=== PATIENT | female | born 1990 | race Caucasian/White ===

== ENCOUNTER 2016-12-23 00:20 | Emergency (ER) | payer MEDICAID ==
[2016-12-23 00:33] VITALS: BP 138/81
--- NOTE | 2016-12-23 00:39 | EDM.PDOC ---
ED HPI GENERAL MEDICAL PROBLEM - General Chief Complaint: ENT Problem Stated Complaint: POSSIBLE STREP, RASH Time Seen by Provider: 12/23/16 00:36 - History of Present Illness INITIAL COMMENTS - FREE TEXT/NARRATIVE: HISTORY AND PHYSICAL: History of present illness: Patient 26-year-old white female with return of sore throat x2 days she is concerned of strep screening she states she's also had a mild rash with this she states she's had some low-grade fever denies chills shortness of breath cough abdominal pain or other concern Review of systems: As per history of present illness and below otherwise all systems reviewed and negative. Past medical history: As per history of present illness and as reviewed below otherwise noncontributory. Surgical history: As per history of present illness and as reviewed below otherwise noncontributory. Social history: No reported history of drug or alcohol abuse. Family history: As per history of present illness and as reviewed below otherwise noncontributory. Physical exam: HEENT: Atraumatic, normocephalic, pupils reactive, negative for conjunctival pallor or scleral icterus, mucous membranes moist, throat injected with 2+ tonsils no peritonsillar fullness Robino deviation neck supple, nontender, trachea midline. Lungs: Clear to auscultation, breath sounds equal bilaterally, chest nontender. Heart: S1S2, regular, negative for clicks, rubs, or JVD. Abdomen: Soft, nondistended, nontender. Negative for masses or hepatosplenomegaly. Negative for costovertebral tenderness. Pelvis: Stable nontender. Genitourinary: Deferred. Rectal: Deferred. Extremities: Atraumatic, negative for cords or calf pain. Neurovascular unremarkable. Neuro: Awake, alert, oriented. Cranial nerves II through XII unremarkable. Cerebellum unremarkable. Motor and sensory unremarkable throughout. Exam nonfocal. Diagnostics: Rapid strep Therapeutics: None Impression: #1 pharyngitis Definitive disposition and diagnosis as appropriate pending reevaluation and review of above. Throat Pain Score (Numeric/FACES): 3 - Related Data Allergies Allergy/AdvReac Type Severity Reaction Status Date / Time No Known Allergies Allergy Verified 03/12/16 00:23 Home Meds: Home Meds . [No Known Home Meds] 12/23/16 [History] Past Medical History - Past Health History Medical/Surgical History: Denies Medical/Surgical History HEENT History: Reports: Impaired vision Other HEENT History: wears glasses/ contacts Cardiovascular History: Reports: None Respiratory History: Reports: None Gastrointestinal History: Reports: GERD Other Gastrointestinal History: unknown location of ulcer Genitourinary History: Reports: None SENIOR RESEARCH CONSULTANT History: Reports: None Musculoskeletal History: Reports: None Neurological History: Reports: None Psychiatric History: Reports: Anxiety, Depression Endocrine/Metabolic History: Reports: None Hematologic History: Reports: None Immunologic History: Reports: None Oncologic (Cancer) History: Reports: None Dermatologic History: Reports: None - Infectious Disease History Infectious Disease History: Reports: Chicken pox - Past Surgical History Head Surgeries/Procedures: Reports: None HEENT Surgical History: Reports: Oral surgery Other HEENT Surgeries/Procedures: wisdom teeth removed Cardiovascular Surgical History: Reports: None Respiratory Surgical History: Reports: None GI Surgical History: Reports: None Female Surgical History: Reports: None Endocrine Surgical History: Reports: None Musculoskeletal Surgical History: Reports: None Oncologic Surgical History: Reports: None Social & Family History - Family History Family Medical History: Noncontributory - Tobacco Use Smoking Status *Q: Never Smoker Years of Tobacco use: 2 Second Hand Smoke Exposure: No - Caffeine Use Caffeine Use: Reports: None - Alcohol Use Days Per Week of Alcohol Use: 2 Number of Drinks Per Day: 6 Total Drinks Per Week: 12 - Recreational Drug Use Recreational Drug Use: No Drug Use in Last 12 Months: No ED ROS GENERAL - Review of Systems Review Of Systems: ROS reveals no pertinent complaints other than HPI. ED EXAM, GENERAL - Physical Exam Exam: See Below (See dictation) Course - Vital Signs Last Recorded V/S: Last Vital Signs Temp 37.2 C 12/23/16 00:29 Pulse 87 12/23/16 00:29 Resp 16 12/23/16 00:29 BP 138/81 12/23/16 00:29 Pulse Ox 98 12/23/16 00:29 - Orders/Labs/Meds Orders: Active Orders 24 hr Category Date Time Status CULTURE STREP A CONFIRMATION [RM] Stat Lab 12/23/16 00:35 Results STREP SCRN A RAPID W CULT CONF [RM] Stat Lab 12/23/16 00:35 Results Departure - Departure Time of Disposition: 00:38 Disposition: Home, Self-Care 01 Condition: good Clinical Impression: Tonsillitis, Viral exanthem Referrals: Melissa Neff NP [Primary Care Provider] - Forms: ED Department Discharge Additional Instructions: The following information is given to patients seen in the emergency department who are being discharged to home. This information is to outline your options for follow-up care. We provide all patients seen in our emergency department with a follow-up referral. The need for follow-up, as well as the timing and circumstances, are variable depending upon the specifics of your emergency department visit. If you don't have a primary care physician on staff, we will provide you with a referral. We always advise you to contact your personal physician following an emergency department visit to inform them of the circumstance of the visit and for follow-up with them and/or the need for any referrals to a consulting specialist. The emergency department will also refer you to a specialist when appropriate. This referral assures that you have the opportunity for followup care with a specialist. All of these measure are taken in an effort to provide you with optimal care, which includes your followup. Under all circumstances we always encourage you to contact your private physician who remains a resource for coordinating your care. When calling for followup care, please make the office aware that this follow-up is from your recent emergency room visit. If for any reason you are refused follow-up, please contact the [facility] emergency department at and asked to speak to the emergency department charge nurse. Benadryl as prescribed push fluids Motrin or Tylenol as directed follow up primary medical doctor in 2 days return as needed as discussed - My Orders Last 24 Hours: My Active Orders 12/23/16 00:35 CULTURE STREP A CONFIRMATION [RM] Stat STREP SCRN A RAPID W CULT CONF [RM] Stat - Assessment/Plan Last 24 Hours: My Active Orders 12/23/16 00:35 CULTURE STREP A CONFIRMATION [RM] Stat STREP SCRN A RAPID W CULT CONF [] Stat
== END 2016-12-23 01:02 | disposition home or self-care (01) ==
LOC: MW.ED 00:20
DX: J03.90 Acute tonsillitis, unspecified (principal); B09 Unspecified viral infection characterized by skin and mucous membrane lesions; K21.9 Gastro-esophageal reflux disease without esophagitis; F41.9 Anxiety disorder, unspecified; F32.9 Major depressive disorder, single episode, unspecified; Z98.890 Other specified postprocedural states
CPT/HCPCS: 87081; 87880; 99282; 99283

== ENCOUNTER 2016-12-23 18:31 | Emergency (ER) | payer MEDICAID ==
--- NOTE | 2016-12-23 19:17 | EDM.PDOC ---
ED HPI Skin/Rash - General Chief Complaint: Skin Complaint Stated Complaint: RASH FLARE UP Time Seen by Provider: 12/23/16 19:11 - History of Present Illness INITIAL COMMENTS - FREE TEXT/NARRATIVE: HISTORY AND PHYSICAL: History of present illness: Patient 26-year-old female presents with a concern of rash patient was seen yesterday by myself with sore throat and rash rapid strep was negative patient was discharged to gradually prescribed we discussed viral exanthems patient returns now with worsening rash she equivocates regarding pruritus she does not know of any new possible exposures or other etiologies. Review of systems: As per history of present illness and below otherwise all systems reviewed and negative. Past medical history: As per history of present illness and as reviewed below otherwise noncontributory. Surgical history: As per history of present illness and as reviewed below otherwise noncontributory. Social history: No reported history of drug or alcohol abuse. Family history: As per history of present illness and as reviewed below otherwise noncontributory. Physical exam: HEENT: Atraumatic, normocephalic, pupils reactive, negative for conjunctival pallor or scleral icterus, mucous membranes moist, throat 2+ tonsils no peritonsillar fullness of mitigation or posterior exudates, neck supple, nontender, trachea midline. Lungs: Clear to auscultation, breath sounds equal bilaterally, chest nontender. Heart: S1S2, regular, negative for clicks, rubs, or JVD. Abdomen: Soft, nondistended, nontender. Negative for masses or hepatosplenomegaly. Negative for costovertebral tenderness. Pelvis: Stable nontender. Genitourinary: Deferred. Rectal: Deferred. Extremities: Maculopapular type rash noted diffusely Neuro: Awake, alert, oriented. Cranial nerves II through XII unremarkable. Cerebellum unremarkable. Motor and sensory unremarkable throughout. Exam nonfocal. Diagnostics: CBC CMP Monospot rapid strep Therapeutics: None Impression: #1 rash etiology to be determined rule out viral exanthem Definitive disposition and diagnosis as appropriate pending reevaluation and review of above. - Related Data Allergies Allergy/AdvReac Type Severity Reaction Status Date / Time No Known Allergies Allergy Verified 12/23/16 19:15 Home Meds: Ambulatory Orders Medication Instructions Recorded Confirmed . [No Known Home Meds] 12/23/16 12/23/16 Past Medical History - Past Health History Medical/Surgical History: Denies Medical/Surgical History HEENT History: Reports: Impaired vision Other HEENT History: wears glasses/ contacts Cardiovascular History: Reports: None Respiratory History: Reports: None Gastrointestinal History: Reports: GERD Other Gastrointestinal History: unknown location of ulcer Genitourinary History: Reports: None ASSOCIATE DIRECTOR History: Reports: None Musculoskeletal History: Reports: None Neurological History: Reports: None Psychiatric History: Reports: Anxiety, Depression Endocrine/Metabolic History: Reports: None Hematologic History: Reports: None Immunologic History: Reports: None Oncologic (Cancer) History: Reports: None Dermatologic History: Reports: None - Infectious Disease History Infectious Disease History: Reports: Chicken pox - Past Surgical History Head Surgeries/Procedures: Reports: None HEENT Surgical History: Reports: Oral surgery Other HEENT Surgeries/Procedures: wisdom teeth removed Cardiovascular Surgical History: Reports: None Respiratory Surgical History: Reports: None GI Surgical History: Reports: None Female Surgical History: Reports: None Endocrine Surgical History: Reports: None Musculoskeletal Surgical History: Reports: None Oncologic Surgical History: Reports: None Social & Family History - Family History Family Medical History: Noncontributory - Tobacco Use Smoking Status *Q: Never Smoker Years of Tobacco use: 2 Second Hand Smoke Exposure: No - Caffeine Use Caffeine Use: Reports: None - Alcohol Use Days Per Week of Alcohol Use: 2 Number of Drinks Per Day: 6 Total Drinks Per Week: 12 - Recreational Drug Use Recreational Drug Use: No Drug Use in Last 12 Months: No ED ROS GENERAL - Review of Systems Review Of Systems: ROS reveals no pertinent complaints other than HPI. ED EXAM, SKIN/RASH Exam: See Below (See dictation) Course - Vital Signs Last Recorded V/S: Last Vital Signs Temp 37.1 C 12/23/16 19:20 Pulse 81 12/23/16 19:20 Resp 18 12/23/16 19:20 BP 119/66 12/23/16 19:20 Pulse Ox 99 12/23/16 19:20 - Orders/Labs/Meds Orders: Active Orders 24 hr Category Date Time Status CULTURE STREP A CONFIRMATION [RM] Stat Lab 12/23/16 19:34 Results STREP SCRN A RAPID W CULT CONF [RM] Stat Lab 12/23/16 19:34 Results Labs: Laboratory Tests 12/23/16 12/23/16 12/23/16 Range/Units 19:30 19:30 19:30 WBC 9.82 (4.0-11.0) K/uL RBC 4.58 (4.30-5.90) M/uL Hgb 13.6 (12.0-16.0) g/dL Hct 41.5 (36.0-46.0) % MCV 90.6 (80.0-98.0) fL MCH 29.7 (27.0-32.0) pg MCHC 32.8 (31.0-37.0) g/dL RDW Std Deviation 46.0 (28.0-62.0) fl RDW Coeff of [place] 14 (11.0-15.0) % Plt Count 259 (150-400) K/uL MPV 9.90 (7.40-12.00) fL Neut % (Auto) 74.5 (48.0-80.0) % Lymph % (Auto) 12.8 L (16.0-40.0) % [place] % (Auto) 7.3 (0.0-15.0) % Eos % (Auto) 5.3 (0.0-7.0) % Baso % (Auto) 0.1 (0.0-1.5) % Neut # (Auto) 7.3 H (1.4-5.7) K/uL Lymph # (Auto) 1.3 (0.6-2.4) K/uL [place] # (Auto) 0.7 (0.0-0.8) K/uL Eos # (Auto) 0.5 (0.0-0.7) K/uL Baso # (Auto) 0.0 (0.0-0.1) K/uL Nucleated RBC % 0.0 /100WBC Nucleated RBCs # 0 K/uL Sodium 140 (136-146) mmol/L Potassium 3.9 (3.5-5.1) mmol/L Chloride 109 (98-110) mmol/L Carbon Dioxide 23 (21-31) mmol/L BUN 14 (6.0-23.0) mg/dL Creatinine 0.7 (0.6-1.5) mg/dL Est Cr Clr Drug Dosing 91.09 mL/min Estimated GFR (MDRD) > 60.0 ml/min Glucose 96 (60-110) mg/dL Calcium 8.3 L (8.8-10.8) mg/dL Total Bilirubin 0.5 (0.1-1.5) mg/dL AST 26 (5-40) IU/L ALT 51 (8-54) IU/L Alkaline Phosphatase 98 (40-150) Total Protein 6.4 (6.0-8.0) g/dL Albumin 3.7 (3.5-5.0) g/dL Globulin 2.7 (2.0-3.5) g/dL Albumin/Globulin Ratio 1.4 (1.3-2.8) Monoscreen NEGATIVE (NEG) Departure - Departure Time of Disposition: 20:32 Disposition: Home, Self-Care 01 Condition: good Clinical Impression: Rash Forms: ED Department Discharge Additional Instructions: The following information is given to patients seen in the emergency department who are being discharged to home. This information is to outline your options for follow-up care. We provide all patients seen in our emergency department with a follow-up referral. The need for follow-up, as well as the timing and circumstances, are variable depending upon the specifics of your emergency department visit. If you don't have a primary care physician on staff, we will provide you with a referral. We always advise you to contact your personal physician following an emergency department visit to inform them of the circumstance of the visit and for follow-up with them and/or the need for any referrals to a consulting specialist. The emergency department will also refer you to a specialist when appropriate. This referral assures that you have the opportunity for followup care with a specialist. All of these measure are taken in an effort to provide you with optimal care, which includes your followup. Under all circumstances we always encourage you to contact your private physician who remains a resource for coordinating your care. When calling for followup care, please make the office aware that this follow-up is from your recent emergency room visit. If for any reason you are refused follow-up, please contact the [facility] emergency department at and asked to speak to the emergency department charge nurse. Medrol as prescribed continue Benadryl follow up with private medical doctor one to 2 days return as needed as discussed - My Orders Last 24 Hours: My Active Orders 12/23/16 19:34 CULTURE STREP A CONFIRMATION [] Stat STREP SCRN A RAPID W CULT CONF [RM] Stat - Assessment/Plan Last 24 Hours: My Active Orders 12/23/16 19:34 CULTURE STREP A CONFIRMATION [RM] Stat STREP SCRN A RAPID W CULT CONF [RM] Stat
[2016-12-23 20:01] LABS: CHLORIDE,CL 109 mmol/L (98-110); SODIUM,NA 140 mmol/L (136-146)
[2016-12-23 20:45] VITALS: BP 109/74
== END 2016-12-23 20:40 | disposition home or self-care (01) ==
LOC: MW.ED 18:31
DX: R21 Rash and other nonspecific skin eruption (principal); F41.9 Anxiety disorder, unspecified; F32.9 Major depressive disorder, single episode, unspecified; K21.9 Gastro-esophageal reflux disease without esophagitis; Z98.890 Other specified postprocedural states
CPT/HCPCS: 36415; 80053; 85025; 86308; 87081; 87880; 99282; 99283

== ENCOUNTER 2017-09-30 03:40 | Emergency (ER) | payer MEDICAID ==
[2017-09-30] MEDS ORDERED: Sodium Chloride 0.9% 1,000 ML IV ONE (03:50)
[2017-09-30] MEDS ORDERED: Ondansetron 4 MG/2 ML SDV IVPUSH ONE (03:51)
[2017-09-30] MEDS ORDERED: Ondansetron 4 MG/2 ML SDV ONE (03:53)
[2017-09-30 04:24] LABS: CHLORIDE,CL 111 mmol/L (98-110); SODIUM,NA 145 mmol/L (136-146)
--- NOTE | 2017-09-30 05:04 | EDM.PDOC ---
ED HPI GENERAL MEDICAL PROBLEM - General Chief Complaint: Drug or Alcohol Abuse Stated Complaint: ALCOHOL POISONING Time Seen by Provider: 09/30/17 04:55 - History of Present Illness INITIAL COMMENTS - FREE TEXT/NARRATIVE: HISTORY AND PHYSICAL: History of present illness: Patient 27-year-old female presents with concern of medical screening exam patient was drinking tonight became nauseous and vomited. Review of systems: As per history of present illness and below otherwise all systems reviewed and negative. Past medical history: As per history of present illness and as reviewed below otherwise noncontributory. Surgical history: As per history of present illness and as reviewed below otherwise noncontributory. Social history: No reported history of drug or alcohol abuse. Family history: As per history of present illness and as reviewed below otherwise noncontributory. Physical exam: HEENT: Atraumatic, normocephalic, pupils reactive, negative for conjunctival pallor or scleral icterus, mucous membranes moist, throat clear, neck supple, nontender, trachea midline. Lungs: Clear to auscultation, breath sounds equal bilaterally, chest nontender. Heart: S1S2, regular, negative for clicks, rubs, or JVD. Abdomen: Soft, nondistended, nontender. Negative for masses or hepatosplenomegaly. Negative for costovertebral tenderness. Pelvis: Stable nontender. Genitourinary: Deferred. Rectal: Deferred. Extremities: Atraumatic, negative for cords or calf pain. Neurovascular unremarkable. Neuro: Awake, alert, oriented. Cranial nerves II through XII unremarkable. Cerebellum unremarkable. Motor and sensory unremarkable throughout. Exam nonfocal. Diagnostics: CBC CMP hCG Therapeutics: Normal saline 1 L bolus Zofran 4 mg IV Impression: #1 alcohol abuse #2 gastritis Definitive disposition and diagnosis as appropriate pending reevaluation and review of above. - Related Data Allergies Allergy/AdvReac Type Severity Reaction Status Date / Time No Known Allergies Allergy Verified 09/30/17 03:47 Home Meds: Home Meds . [No Known Home Meds] 12/23/16 [History] Past Medical History - Past Health History Medical/Surgical History: Denies Medical/Surgical History HEENT History: Reports: Impaired Vision Other HEENT History: wears glasses/ contacts Cardiovascular History: Reports: None Respiratory History: Reports: None Gastrointestinal History: Reports: GERD Other Gastrointestinal History: unknown location of ulcer Genitourinary History: Reports: None SIGN MAINTENANCE History: Reports: None Musculoskeletal History: Reports: None Neurological History: Reports: None Psychiatric History: Reports: Anxiety, Depression Endocrine/Metabolic History: Reports: None Hematologic History: Reports: None Immunologic History: Reports: None Oncologic (Cancer) History: Reports: None Dermatologic History: Reports: None - Infectious Disease History Infectious Disease History: Reports: Chicken Pox - Past Surgical History Head Surgeries/Procedures: Reports: None HEENT Surgical History: Reports: Oral Surgery Cardiovascular Surgical History: Reports: None Respiratory Surgical History: Reports: None GI Surgical History: Reports: Cholecystectomy Female Surgical History: Reports: None Endocrine Surgical History: Reports: None Musculoskeletal Surgical History: Reports: None Oncologic Surgical History: Reports: None Social & Family History - Family History Family Medical History: Noncontributory - Tobacco Use Smoking Status *Q: Never Smoker Years of Tobacco use: 2 Second Hand Smoke Exposure: No - Caffeine Use Caffeine Use: Reports: None - Alcohol Use Days Per Week of Alcohol Use: 2 Number of Drinks Per Day: 6 Total Drinks Per Week: 12 - Recreational Drug Use Recreational Drug Use: No Drug Use in Last 12 Months: No ED ROS GENERAL - Review of Systems Review Of Systems: ROS reveals no pertinent complaints other than HPI. ED EXAM, GENERAL - Physical Exam Exam: See Below (See dictation) Course - Vital Signs Last Recorded V/S: Last Vital Signs Temp 36.4 C 09/30/17 03:40 Pulse 82 09/30/17 03:40 Resp 18 09/30/17 03:40 BP 133/84 09/30/17 03:40 Pulse Ox 97 09/30/17 03:40 - Orders/Labs/Meds Labs: Laboratory Tests 09/30/17 09/30/17 09/30/17 Range/Units 03:55 03:55 03:55 WBC 7.10 (4.0-11.0) K/uL RBC 4.84 (4.30-5.90) M/uL Hgb 15.0 (12.0-16.0) g/dL Hct 43.6 (36.0-46.0) % MCV 90.1 (80.0-98.0) fL MCH 31.0 (27.0-32.0) pg MCHC 34.4 (31.0-37.0) g/dL RDW Std Deviation 43.4 (28.0-62.0) fl RDW Coeff of [place] 13 (11.0-15.0) % Plt Count 354 (150-400) K/uL MPV 9.90 (7.40-12.00) fL Neut % (Auto) 55.4 (48.0-80.0) % Lymph % (Auto) 37.9 (16.0-40.0) % [place] % (Auto) 4.4 (0.0-15.0) % Eos % (Auto) 1.3 (0.0-7.0) % Baso % (Auto) 1.0 (0.0-1.5) % Neut # (Auto) 3.9 (1.4-5.7) K/uL Lymph # (Auto) 2.7 H (0.6-2.4) K/uL [place] # (Auto) 0.3 (0.0-0.8) K/uL Eos # (Auto) 0.1 (0.0-0.7) K/uL Baso # (Auto) 0.1 (0.0-0.1) K/uL Nucleated RBC % 0.0 /100WBC Nucleated RBCs # 0 K/uL Sodium 145 (136-146) mmol/L Potassium 3.8 (3.5-5.1) mmol/L Chloride 111 H (98-110) mmol/L Carbon Dioxide 24 (21-31) mmol/L BUN 7 (6.0-23.0) mg/dL Creatinine 0.7 (0.6-1.5) mg/dL Est Cr Clr Drug Dosing 90.29 mL/min Estimated GFR (MDRD) > 60.0 ml/min Glucose 109 (60-110) mg/dL Calcium 9.2 (8.8-10.8) mg/dL Total Bilirubin 0.3 (0.1-1.5) mg/dL AST 31 (5-40) IU/L ALT 41 (8-54) IU/L Alkaline Phosphatase 73 (40-150) Total Protein 8.0 (6.0-8.0) g/dL Albumin 4.8 (3.5-5.0) g/dL Globulin 3.2 (2.0-3.5) g/dL Albumin/Globulin Ratio 1.5 (1.3-2.8) HCG, Qual NEGATIVE (NEG) Meds: Medications Discontinued Medications Generic Name Dose Route Start Last Admin Trade Name Pita PRN Reason Stop Dose Admin Sodium Chloride 1,000 mls @ 999 mls/hr 09/30/17 03:50 09/30/17 03:55 Normal Saline IV 09/30/17 04:50 999 mls/hr .Bolus ONE Administration Ondansetron HCl 4 mg 09/30/17 03:51 09/30/17 03:56 Zofran IVPUSH 09/30/17 03:52 4 mg ONETIME ONE Administration Ondansetron HCl Confirm 09/30/17 03:53 Zofran Administered 09/30/17 03:54 Dose 4 mg .ROUTE .STK-MED ONE Departure - Departure Time of Disposition: 05:03 Disposition: Home, Self-Care 01 Condition: Good Clinical Impression: Alcohol abuse, Gastritis - Discharge Information Referrals: PCP,None [Primary Care Provider] - Additional Instructions: The following information is given to patients seen in the emergency department who are being discharged to home. This information is to outline your options for follow-up care. We provide all patients seen in our emergency department with a follow-up referral. The need for follow-up, as well as the timing and circumstances, are variable depending upon the specifics of your emergency department visit. If you don't have a primary care physician on staff, we will provide you with a referral. We always advise you to contact your personal physician following an emergency department visit to inform them of the circumstance of the visit and for follow-up with them and/or the need for any referrals to a consulting specialist. The emergency department will also refer you to a specialist when appropriate. This referral assures that you have the opportunity for followup care with a specialist. All of these measure are taken in an effort to provide you with optimal care, which includes your followup. Under all circumstances we always encourage you to contact your private physician who remains a resource for coordinating your care. When calling for followup care, please make the office aware that this follow-up is from your recent emergency room visit. If for any reason you are refused follow-up, please contact the [facility] emergency department at and asked to speak to the emergency department charge nurse. Stop drinking push fluids follow primary medical doctor 1-2 days return as needed as discussed
[2017-09-30 05:16] VITALS: BP 116/82
== END 2017-09-30 05:16 | disposition home or self-care (01) ==
LOC: MW.ED 03:40
DX: K29.70 Gastritis, unspecified, without bleeding (principal); F10.10 Alcohol abuse, uncomplicated
CPT/HCPCS: 80053; 84703; 85025; 96361; 96374; 99284; J2405; J7040; 99283

== ENCOUNTER 2021-06-08 19:39 | Emergency (ER) | payer SELFPAY ==
--- NOTE | 2021-06-08 19:42 | EDM.PDOC ---
ED HPI GENERAL MEDICAL PROBLEM - General Stated Complaint: NUMBNESS IN ARMS AND LEGS TIGHT CHEST Time Seen by Provider: 06/08/21 19:40 Source of Information: Reports: Patient History Limitations: Reports: No Limitations - History of Present Illness INITIAL COMMENTS - FREE TEXT/NARRATIVE: HISTORY AND PHYSICAL: History of present illness: Patient is a 31-year-old female who presents to the emergency room with complaints of chest tightness, fatigue, shortness of breath x3 hours. She states she feels like her whole body is "tight.. Like my muscles want to give out". She states her chest feels tight but doesn't say is overly painful. States she has noticed she has been voiding more frequently and when she does void it is in small amounts. Patient denies any fever, chills, headache, change in vision, syncope or near syncope. Denies any neck/back pain, hemoptysis or cough. Denies any abdominal pain, nausea, vomiting, constipation or dysuria. Patient states she chronically has diarrhea since having her gallbladder removed, this is not new or unusual. Has not noted any blood in urine or stool. Patient has been eating and drinking appropriately. No personal history of cardiovascular, pulmonary disease or diabetes. Review of systems: As per history of present illness and below otherwise all systems reviewed and negative. Past medical history: As per history of present illness and as reviewed below otherwise noncontributory. Surgical history: As per history of present illness and as reviewed below otherwise noncontributory. Social history: See social history for further information Family history: As per history of present illness and as reviewed below otherwise noncontributory. Physical exam: General: Well developed and well nourished 31-year-old female. Alert and murphy entated x 3. Nontoxic in appearance and in no acute distress. Vital signs are stable and have been reviewed by me. Nursing notes were reviewed. HEENT: Atraumatic, normocephalic, pupils equal and reactive bilaterally, negative for conjunctival pallor or scleral icterus, mucous membranes moist, TMs normal bilaterally, throat clear, neck supple, nontender, trachea midline. No drooling or trismus noted. No meningeal signs. No hot potato voice noted. Lungs: Clear to auscultation bilaterally. No wheezes, rales, or rhonchi. Chest nontender. Normal work of breathing, no accessory muscles used. Heart: S1S2, regular rate and rhythm without overt murmur, gallops, or rubs. No JVD. No peripheral edema Abdomen: Soft, nondistended, nontender. Normoactive bowel sounds. Negative for masses or costovertebral tenderness. Skin: Intact, warm, dry. No lesions or rashes noted. Hematologic: No petechiae or purpra. Mucosa appropriate color and normal nail bed color and refill. Extremities: Atraumatic, moves all extremities per self without difficulty or deficits, negative for cords or calf pain. Neurovascular unremarkable. Neuro: Awake, alert, oriented. Cranial nerves II through XII unremarkable. Cerebellum unremarkable. Motor and sensory unremarkable throughout. Exam nonfocal. Psychiatric: Mood and affect are appropriate. Normal thought process. Answering questions appropriately. Please note that the patient was seen and evaluated during the 2019 SARS-CoV-2 novel coronavirus pandemic period. Community viral transmission is ongoing at time of this encounter and the emergency department is operating under pandemic response procedures. Medical Decision Making: Patient's physical exam is unremarkable. Due to stated complaint we will do a cardiac work-up along with a D-dimer although my suspicion for any acute illnesses are low. She does appear anxious I feel symptoms may be related to increased anxiety. Patient states she did feel somewhat anxious when she felt the pain but does not have a history of anxiety and declines wanting anything at this time. Lab work is unremarkable. Patient states she does feel improved after the IV fluids. Strict return precautions were reviewed. I have talked with the patient about today's findings, in addition to providing specific details for plan of care. Reassessment at the time of disposition demonstrates that the patient is in no acute distress. The patient is stable for discharge, counseling was provided and we discussed in great detail signs and symptoms that would prompt them to return to the Emergency Department. Medication, follow up and supportive care measures were reviewed and discussed. Voices understanding and is agreeable to plan of care. Denies any further questions or concerns at this time. Diagnostics: CBC, CMP, Troponin, EKG, CXR, [employer]: IV fluid Prescription: none Impression: Chest pain Plan: 1. You were evaluated today on an emergent basis. Your labs, EKG, CXR, and urine are normal. Blood sugar is normal a 106 (normal is 80-110). Did not test you for COVID-19 today. Should your symptoms continue or persist I would like you to get tested either late this or on Saturday. You can Cristi follow- up at the walk-in clinic or return to the emergency room if you feel it is needed. 2. You can alternate Tylenol and ibuprofen as needed for pain and fever management. 3. We encourage you to follow up with your primary care provider and/or recommended specialist in the next few days for re-evaluation and further care/management. 4. If your symptoms should worsen, new symptoms develop or any of the signs and symptoms we discussed should arise please return to the emergency room or call 911 (if needed). Definitive disposition and diagnosis as appropriate pending reevaluation and review of above. Onset: Today chest area Pain Score (Numeric/FACES): 5 - Related Data Allergies Allergy/AdvReac Type Severity Reaction Status Date / Time No Known Allergies Allergy Verified 06/08/21 19:52 Home Meds: Home Meds . 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 Musculoskeletal History: Reports: None Neurological History: Reports: None Psychiatric History: Reports: Anxiety, Depression Endocrine/Metabolic History: Reports: None Hematologic History: Reports: None Immunologic History: Reports: None Oncologic (Cancer) History: Reports: None Dermatologic History: Reports: None - Infectious Disease History Infectious Disease History: Reports: Chicken Pox - Past Surgical History Head Surgeries/Procedures: Reports: None HEENT Surgical History: Reports: Oral Surgery Cardiovascular Surgical History: Reports: None Respiratory Surgical History: Reports: None GI Surgical History: Reports: Cholecystectomy Female Surgical History: Reports: None Endocrine Surgical History: Reports: None Musculoskeletal Surgical History: Reports: None Oncologic Surgical History: Reports: None Social & Family History - Family History Family Medical History: No Pertinent Family History - Caffeine Use Caffeine Use: Reports: None ED ROS GENERAL - Review of Systems Review Of Systems: Comprehensive ROS is negative, except as noted in HPI. ED EXAM, GENERAL - Physical Exam Exam: See Below (See dictation) Course - Vital Signs Last Recorded V/S: Last Vital Signs Temp 98.3 F 06/08/21 19:45 Pulse 106 H 06/08/21 19:45 Resp 18 06/08/21 19:45 BP 134/95 H 06/08/21 19:45 Pulse Ox 97 06/08/21 19:45 - Orders/Labs/Meds Orders: Active Orders 24 hr Category Date Time Status EKG Documentation Completion [RC] STAT Care 06/08/21 19:49 Active Labs: Laboratory Tests 06/08/21 06/08/21 06/08/21 Range/Units 19:52 19:52 19:52 WBC 13.40 H (4.0-11.0) K/uL RBC 4.58 (4.30-5.90) M/uL Hgb 14.0 (12.0-16.0) g/dL Hct 39.7 (36.0-46.0) % MCV 86.7 (80.0-98.0) fL MCH 30.6 (27.0-32.0) pg MCHC 35.3 (31.0-37.0) g/dL RDW Std Deviation 40.5 (28.0-62.0) fl RDW Coeff of Aguila 13 (11.0-15.0) % Plt Count 362 (150-400) K/uL MPV 10.30 (7.40-12.00) fL Neut % (Auto) 62.6 (48.0-80.0) % Lymph % (Auto) 26.8 (16.0-40.0) % [place] % (Auto) 8.4 (0.0-15.0) % Eos % (Auto) 1.8 (0.0-7.0) % Baso % (Auto) 0.4 (0.0-1.5) % Neut # (Auto) 8.4 H (1.4-5.7) K/uL Lymph # (Auto) 3.6 H (0.6-2.4) K/uL [place] # (Auto) 1.1 H (0.0-0.8) K/uL Eos # (Auto) 0.2 (0.0-0.7) K/uL Baso # (Auto) 0.1 (0.0-0.1) K/uL Nucleated RBC % 0.0 /100WBC Nucleated RBCs # 0 K/uL D-Dimer, Quantitative (0.0-0.50) mg/L FEU Sodium (136-145) mmol/L Potassium (3.5-5.1) mmol/L Chloride (98-107) mmol/L Carbon Dioxide (21.0-32.0) mmol/L BUN (7.0-18.0) mg/dL Creatinine (0.6-1.0) mg/dL Est Cr Clr Drug Dosing Estimated GFR (MDRD) ml/min Glucose (74-106) mg/dL Lactic Acid (0.4-2.0) mmol/L Calcium (8.5-10.1) mg/dL Total Bilirubin (0.2-1.0) mg/dL AST (15-37) IU/L ALT (14-63) IU/L Alkaline Phosphatase (46-116) U/L Creatine Kinase (26-308) U/L Troponin I (0.000-0.056) ng/mL Total Protein (6.4-8.2) g/dL Albumin (3.4-5.0) g/dL Globulin (2.6-4.0) g/dL Albumin/Globulin Ratio (0.9-1.6) Urine Color YELLOW Urine Appearance CLEAR Urine pH 6.0 (5.0-8.0) Ur Specific [place] <= 1.005 (1.001-1.035) Urine Protein NEGATIVE (NEGATIVE) mg/dL Urine Glucose (UA) NEGATIVE (NEGATIVE) mg/dL Urine Ketones NEGATIVE (NEGATIVE) mg/dL Urine Occult Blood TRACE-INTACT H (NEGATIVE) Urine Nitrite NEGATIVE (NEGATIVE) Urine Bilirubin NEGATIVE (NEGATIVE) Urine Urobilinogen 0.2 (<2.0) EU/dL Ur Leukocyte Esterase NEGATIVE (NEGATIVE) Urine RBC 0-1 (0-2/HPF) Urine WBC 0-1 (0-5/HPF) Ur Epithelial Cells RARE (NONE-FEW) Urine Bacteria RARE (NEGATIVE) Urine HCG, Qual NEGATIVE (NEGATIVE) 06/08/21 06/08/21 06/08/21 Range/Units 19:52 19:52 20:05 WBC (4.0-11.0) K/uL RBC (4.30-5.90) M/uL Hgb (12.0-16.0) g/dL Hct (36.0-46.0) % MCV (80.0-98.0) fL MCH (27.0-32.0) pg MCHC (31.0-37.0) g/dL RDW Std Deviation (28.0-62.0) fl RDW Coeff of [place] (11.0-15.0) % Plt Count (150-400) K/uL MPV (7.40-12.00) fL Neut % (Auto) (48.0-80.0) % Lymph % (Auto) (16.0-40.0) % [place] % (Auto) (0.0-15.0) % Eos % (Auto) (0.0-7.0) % Baso % (Auto) (0.0-1.5) % Neut # (Auto) (1.4-5.7) K/uL Lymph # (Auto) (0.6-2.4) K/uL [place] # (Auto) (0.0-0.8) K/uL Eos # (Auto) (0.0-0.7) K/uL Baso # (Auto) (0.0-0.1) K/uL Nucleated RBC % /100WBC Nucleated RBCs # K/uL D-Dimer, Quantitative 0.20 (0.0-0.50) mg/L FEU Sodium 137 (136-145) mmol/L Potassium 3.4 L (3.5-5.1) mmol/L Chloride 102 (98-107) mmol/L Carbon Dioxide 26.9 (21.0-32.0) mmol/L BUN 13 (7.0-18.0) mg/dL Creatinine 0.8 (0.6-1.0) mg/dL Est Cr Clr Drug Dosing TNP Estimated GFR (MDRD) > 60.0 ml/min Glucose 106 (74-106) mg/dL Lactic Acid 1.1 (0.4-2.0) mmol/L Calcium 8.8 (8.5-10.1) mg/dL Total Bilirubin 0.4 (0.2-1.0) mg/dL AST 18 (15-37) IU/L ALT 29 (14-63) IU/L Alkaline Phosphatase 69 (46-116) U/L Creatine Kinase 109 (26-308) U/L Troponin I < 0.050 (0.000-0.056) ng/mL Total Protein 7.5 (6.4-8.2) g/dL Albumin 4.1 (3.4-5.0) g/dL Globulin 3.4 (2.6-4.0) g/dL Albumin/Globulin Ratio 1.2 (0.9-1.6) Urine Color Urine Appearance Urine pH (5.0-8.0) Ur Specific [place] (1.001-1.035) Urine Protein (NEGATIVE) mg/dL Urine Glucose (UA) (NEGATIVE) mg/dL Urine Ketones (NEGATIVE) mg/dL Urine Occult Blood (NEGATIVE) Urine Nitrite (NEGATIVE) Urine Bilirubin (NEGATIVE) Urine Urobilinogen (<2.0) EU/dL Ur Leukocyte Esterase (NEGATIVE) Urine RBC (0-2/HPF) Urine WBC (0-5/HPF) Ur Epithelial Cells (NONE-FEW) Urine Bacteria (NEGATIVE) Urine HCG, Qual (NEGATIVE) Meds: Medications Discontinued Medications Generic Name Dose Route Start Last Admin Trade Name Pita PRN Reason Stop Dose Admin Sodium Chloride 1,000 mls @ 999 mls/hr 06/08/21 19:49 06/08/21 20:05 Normal Saline IV 06/08/21 20:49 999 mls/hr STAT ONE Administration Ketorolac Tromethamine 30 mg 06/08/21 19:50 06/08/21 20:05 Ketorolac 30 Mg/Ml Sdv IVPUSH 06/08/21 19:51 30 mg ONETIME ONE Administration Departure - Departure Time of Disposition: 21:01 Disposition: Home, Self-Care 01 Clinical Impression: Atypical chest pain - Discharge Information Instructions: Nonspecific Chest Pain, Adult, [id number] Referrals: PCP,None [Primary Care Provider] - Forms: ED Department Discharge Additional Instructions: The following information is given to patients seen in the emergency department who are being discharged to home. This information is to outline your options for follow-up care. We provide all patients seen in our emergency department with a follow-up referral. The need for follow-up, as well as the timing and circumstances, are variable depending upon the specifics of your emergency department visit. If you don't have a primary care physician on staff, we will provide you with a referral. We always advise you to contact your personal physician following an emergency department visit to inform them of the circumstance of the visit and for follow-up with them and/or the need for any referrals to a consulting specialist. The emergency department will also refer you to a specialist when appropriate. This referral assures that you have the opportunity for follow-up care with a specialist. All of these measure are taken in an effort to provide you with optimal care, which includes your follow-up. Under all circumstances we always encourage you to contact your private physician who remains a resource for coordinating your care. When calling for follow-up care, please make the office aware that this follow-up is from your recent emergency room visit. If for any reason you are refused follow-up, please contact the [facility] Emergency Department at and asked to speak to the emergency department charge nurse. [facility] [address] [place] [id number] [facility] [address] [place] [phone] Thank you for choosing the [facility] emergency department in [place] for your medical needs today. It was a pleasure caring for you. Today you were seen in the emergency department for shortness of breathe and chest pain. 1. You were evaluated today on an emergent basis. Your labs, EKG, chest x-ray, and urine are normal. Blood sugar is normal a 106 (normal is 80-110). Did not test you for COVID-19 today. Should your symptoms continue or persist I would like you to get tested either late this weekend or on Saturday. You can Cristi follow-up at the walk-in clinic or return to the emergency room if you feel it is needed. 2. You can alternate Tylenol and ibuprofen as needed for pain and fever management. 3. We encourage you to follow up with your primary care provider and/or recommended specialist in the next few days for re-evaluation and further care/management. 4. If your symptoms should worsen, new symptoms develop or any of the signs and symptoms we discussed should arise please return to the emergency room or call 911 (if needed). Sepsis Event Note (ED) - Focused Exam Vital Signs: Vital Signs Temp Pulse Resp BP Pulse Ox 06/08/21 19:45 98.3 F 106 H 18 134/95 H 97 - My Orders Last 24 Hours: My Active Orders 06/08/21 19:49 EKG Documentation Completion [RC] STAT - Assessment/Plan Last 24 Hours: My Active Orders 06/08/21 19:49 EKG Documentation Completion [RC] STAT
[2021-06-08] MEDS ORDERED: Sodium Chloride 0.9% 1,000 ML IV ONE (19:49)
[2021-06-08] MEDS ORDERED: Ketorolac 30 MG/ML SDV IVPUSH ONE (19:50)
--- NOTE | 2021-06-08 19:58 | PCM.EKG ---
#1 Interpretation EKG Date: 06/08/21 Time: 19:42 Rhythm: Other (sinus tachy) Rate (Beats/Min): 107 ST-T: Normal
[2021-06-08 20:15] LABS: BLOOD UREA NITROGEN,BUN 13 mg/dL (7.0-18.0); CARBON DIOXIDE,CO2 26.9 mmol/L (21.0-32.0); CHLORIDE,CL 102 mmol/L (98-107); GLUCOSE RANDOM 106 mg/dL (74-106); POTASSIUM,K 3.4 mmol/L (3.5-5.1); SODIUM,NA 137 mmol/L (136-145)
--- NOTE | 2021-06-08 20:55 | CR ---
INDICATION: Shortness of breath, chest pain. TECHNIQUE: Chest 1 view. COMPARISON: Chest radiograph 03/12/2016. FINDINGS: No focal consolidation, pleural effusion, or pneumothorax. Normal heart size and pulmonary vascularity. Surgical clips right upper quadrant. The bones are unremarkable. IMPRESSION: No acute cardiopulmonary findings. Dictated by Tania Davila MD @ 06/08/2021 8:54:24 PM (Electronically Signed)
[2021-06-08 22:14] VITALS: BP 114/78; PULSE 78
== END 2021-06-08 21:17 | disposition home or self-care (01) ==
LOC: MW.ED 19:39
DX: R07.89 Other chest pain (principal)
CPT/HCPCS: 36415; 71045; 80053; 81001; 81025; 82550; 83605; 84484; 85025; 85379; 93005; 96374; 99285; J1885; J7030

== ENCOUNTER 2022-09-17 18:24 | Emergency (ER) | payer SELFPAY ==
[2022-09-17] MEDS ORDERED: Orphenadrine 60 MG/2 ML Inj IM ONE (21:55)
[2022-09-17] MEDS: Ketorolac 60 MG/2 ML SDV IM ONE ×3 (22:00→23:23)
[2022-09-18 00:11] VITALS: BP 110/70; PULSE 72
== END 2022-09-17 23:25 | disposition home or self-care (01) ==
LOC: MW.ED 18:24
DX: G44.89 Other headache syndrome (principal); M54.2 Cervicalgia; M54.50 Low back pain, unspecified; V43.92XA Unspecified car occupant injured in collision with other type car in traffic accident, initial encounter; Y92.410 Unspecified street and highway as the place of occurrence of the external cause
CPT/HCPCS: 70450; 72100; 72125; 96372; 99284; J1885; J2360